=== PATIENT | female | born 1975 | race Caucasian/White ===

== ENCOUNTER 2016-09-16 16:16 | Emergency (ER) | payer MEDICAID, OTHER ==
[~2016-09-16] VITALS: Ht 172.7 cm; Wt 83.9 kg
[~2016-09-16 16:16] MED LIST: ACET-822 PO
--- NOTE | 2016-09-16 16:50 | NUR ---
Patient discharged to home in stable conditon. Written and verbal after care instructions given. Patient verbalizes understanding of instructions.
== END 2016-09-16 16:51 | disposition home or self-care (01) ==
LOC: ER 16:17
DX: H60.92 Unspecified otitis externa, left ear (principal); Z79.899 Other long term (current) drug therapy
CPT/HCPCS: A4663